=== PATIENT | female | born 1955 | race Caucasian/White ===

== ENCOUNTER 2017-02-23 12:12 | Outpatient (CLI) | payer OTHER ==
[2017-02-23 13:38] LABS: Cardiac Risk 2.6 (Less than 4.5)
== END 2017-02-23 12:13 | disposition home or self-care (01) ==
LOC: NAVSJIPCSP 12:12
PROVIDERS: ATTEND Internal Medicine
DX: E78.5 Hyperlipidemia, unspecified (principal)
CPT/HCPCS: 36415; 80061

== ENCOUNTER 2020-06-26 09:44 | Emergency (ER) | payer MEDICARE ==
[2020-06-26 22:47] LABS: SARS-CoV-2 MS2 Positive; SARS-CoV-2 N Gene Negative; SARS-CoV-2 S Gene Negative; SARS-CoV-2 by NAA Not Detected (NotDetected); SARS-CoV-2 orf1ab Negative
== END 2020-06-26 10:24 | disposition home or self-care (01) ==
LOC: NAV ERS 09:44
DX: R50.9 Fever, unspecified (principal); M79.10 Myalgia, unspecified site; R11.2 Nausea with vomiting, unspecified; R19.7 Diarrhea, unspecified; M54.2 Cervicalgia; R21 Rash and other nonspecific skin eruption; Z20.828 Contact with and (suspected) exposure to other viral communicable diseases; E78.5 Hyperlipidemia, unspecified; E78.00 Pure hypercholesterolemia, unspecified; I10 Essential (primary) hypertension; Z79.899 Other long term (current) drug therapy
CPT/HCPCS: 99283; U0003; 87635